=== PATIENT | female | born 1970 | race Caucasian/White ===

== ENCOUNTER 2016-10-20 18:14 | Emergency (ER) | payer MEDICAID ==
--- NOTE | 2016-10-20 18:56 | EDPHY ---
H & P Stated Complaint: fell down 7 stairs today R shouilder & foot pain Time Seen by Provider: 10/20/16 18:47 HPI/ROS: CHIEF COMPLAINT: Right shoulder and right toe pain. HISTORY OF PRESENT ILLNESS: Patient is a 46-year-old female who states that she was walking down the stairs and slipped on ice and fell for down the stairs. She is complaining of pain to her right shoulder and right toe. She also has an abrasion to her right knee. She denies any head neck or back injury. She is on Plavix. She denies any loss of consciousness. No abdominal or thoracic pain. She is able to ambulate. REVIEW OF SYSTEMS: Constitutional: denies: chills, fever, recent illness, recent injury EENTM: denies: blurred vision, double vision, nose congestion Respiratory: denies: cough, shortness of breath Cardiac: denies: chest pain, irregular heart rate, lightheadedness, palpitations Gastrointestinal/Abdominal: denies: abdominal pain, diarrhea, nausea, vomiting, blood streaked stools Genitourinary: denies: dysuria, frequency, hematuria, pain Musculoskeletal: See HPI Skin: denies: lesions, rash, jaundice, bruising Neurological: denies: headache, numbness, paresthesia, tingling, dizziness, weakness Hematologic/Lymphatic: denies: blood clots, easy bleeding, easy bruising Immunologic/allergic: denies: HIV/AIDS, transplant EXAM: GENERAL: Well-appearing, well-nourished and in no acute distress. HEAD: Atraumatic, normocephalic. EYES: Pupils equal round and reactive to light, extraocular movements intact, sclera anicteric, conjunctiva are normal. ENT: TMs normal, nares patent, oropharynx clear without exudates. Moist mucous membranes. NECK: Normal range of motion, supple without lymphadenopathy or JVD. LUNGS: Breath sounds clear to auscultation bilaterally and equal. No wheezes rales or rhonchi. HEART: Regular rate and rhythm without murmurs, rubs or gallops. ABDOMEN: Soft, nontender, normoactive bowel sounds. No guarding, no rebound. No masses appreciated. BACK: No CVA tenderness, no spinal tenderness, step-offs or deformities EXTREMITIES: Patient has pain to right shoulder normal range of motion. No swelling or deformity. Pain to her right great toe MTP joint. No swelling or deformity or bruising. Small abrasion to her right knee. NEUROLOGICAL: Cranial nerves II through XII grossly intact. Normal speech, normal gait. 5/5 strength, normal movement in all extremities, normal sensation PSYCH: Normal mood, normal affect. SKIN: Warm, dry, normal turgor, no visible rashes or lesions. Source: Patient Exam Limitations: No limitations - Personal History LMP (Females 10-55): 22-28 Days Ago Current Tetanus/Diphtheria Vaccine: No Current Tetanus Diphtheria and Acellular Pertussis (TDAP): No - Medical/Surgical History Hx Asthma: No Hx Chronic Respiratory Disease: Yes Hx Diabetes: Yes Hx Cardiac Disease: Yes Hx Renal Disease: No Hx Cirrhosis: No Hx Alcoholism: No Hx HIV/AIDS: No Hx Splenectomy or Spleen Trauma: No Other PMH: emphysema, AMI, CVA, high chol, DMII, HTN - Family History Significant Family History: No pertinent family hx - Social History Smoking Status: Current every day smoker Alcohol Use: Sober Drug Use: None Constitutional: Initial Vital Signs Temperature (C) 37 C 10/20/16 18:16 Heart Rate 78 10/20/16 18:16 Respiratory Rate 14 10/20/16 18:16 Blood Pressure 128/80 H 10/20/16 18:16 O2 Sat (%) 94 10/20/16 18:16 O2 Delivery Mode Room Air Allergies/Adverse Reactions: Morpholine Analogues Allergy (Verified 10/20/16 18:20) Penicillins Allergy (Verified 10/20/16 18:20) tetanus and diphtheria toxoids Allergy (Verified 10/20/16 18:20) Home Medications: Medication Instructions Recorded Aspirin 10/20/16 Metformin HCl 10/20/16 Metoprolol Succinate 10/20/16 Plavix 10/20/16 Medical Decision Making - Diagnostics Imaging Results: Imaging Impressions Foot X-Ray 10/20/16 18:53 Impression: Acute fracture with intra-articular involvement involving the meta- epiphyseal base of the great toe distal phalanx. Shoulder X-Ray 10/20/16 18:53 Impression: There is no acute osseous abnormality identified. Imaging: I viewed and interpreted images myself Procedures: Procedure: Splint placement. A postoperative shoe was applied. After application of the splint I returned and re-examined the patient. The splint was adequately immobilizing the joint and distal to the splint the patient's circulation and sensation was intact. ED Course/Re-evaluation: The patient is here primarily asking for pain medication. We will x-ray her shoulder and toe. She declines x-ray of her knee. The patient was placed in a postop shoe. We discussed pain medication options. We will stick with Tylenol. She is allergic to morphine and tramadol and cannot take ibuprofen because for Plavix. She understands this plan and declines further workup or testing. Differential Diagnosis: Partial list of the Differential diagnosis considered include but were not limited to; contusion, fracture, dislocation and although unlikely based on the history and physical exam, I also considered head injury, neck injury, non accidental trauma. I discussed these differential diagnoses and the plan with the patient as well as the usual and expected course. The patient understands that the diagnosis is provisional and that in medicine we are not always correct and that further workup is often warranted. Usual and customary warnings were given. All of the patient's questions were answered. The patient was instructed to return to the emergency department should the symptoms at all worsen or return, otherwise to followup with the physician as we discussed. Departure - Departure Disposition: Home, Routine, Self-Care Clinical Impression: Toe fracture, right Qualifiers: Encounter type: initial encounter Toe: great toe Fracture type: closed Phalanx : distal Fracture alignment: displaced Qualified Code(s): S92.421A - Displaced fracture of distal phalanx of right great toe, initial encounter for closed fracture Condition: Fair Instructions: Toe Fracture (ED) Referrals: ROSELIA WILKS [Other] - As per Instructions Yolande Lopez [Doctor of Podiatric Medicine] - As per Instructions
[2016-10-20 19:51] VITALS: BP 131/78; PULSE 75; RESP 18; TEMP 98.4; O2SAT 93
== END 2016-10-20 19:50 | disposition home or self-care (01) ==
DX: S92.421A Displaced fracture of distal phalanx of right great toe, initial encounter for closed fracture (principal); E11.9 Type 2 diabetes mellitus without complications; I10 Essential (primary) hypertension; F17.200 Nicotine dependence, unspecified, uncomplicated; Z86.73 Personal history of transient ischemic attack (TIA), and cerebral infarction without residual deficits; Z79.84 Long term (current) use of oral hypoglycemic drugs; Z79.82 Long term (current) use of aspirin; W10.8XXA Fall (on) (from) other stairs and steps, initial encounter
CPT/HCPCS: L3260

== ENCOUNTER 2016-12-24 13:01 | Emergency (ER) | payer MEDICAID ==
[2016-12-24 13:08] VITALS: RESP 16; TEMP 98.2
--- NOTE | 2016-12-24 13:20 | CPEKG ---
Heart Rate: 69 RR Interval: 870 P-R Interval: 172 QRSD Interval: 90 QT Interval: 404 QTC Interval: 433 P [place]: 49 QRS [place]: -87 T Wave [place]: 50 EKG Severity - ABNORMAL ECG - EKG Impression: SINUS RHYTHM EKG Impression: LAD, CONSIDER LEFT ANTERIOR FASCICULAR BLOCK Electronically Signed By: Jag Crowell 24-Dec-2016 13:28:54
[2016-12-24] MEDS ORDERED: ASPIRIN 81 MG CHEWABLE TAB PO ONE (13:22)
[2016-12-24 13:30] LABS: % IMMATURE GRANULYOCYTES 0.6 % (0.0-1.1); ABSOLUTE IMMATURE GRANULOCYTES 0.09 10^3/uL (0.00-0.10); ADD DIFF? NO; ADD MORPH? NO; ADD SCAN? NO; ATYPICAL LYMPHOCYTE FLAG 0 (0-99); FRAGMENT RBC FLAG 0 (0-99); HEMATOCRIT 42.8 % (38.0-47.0); HEMOGLOBIN 13.9 g/dL (12.6-16.3); LEFT SHIFT FLG 0 (0-99); LIPEMIA HEMOLYSIS FLAG 80 (0-99); MEAN CELL HEMOGLOBIN 27.4 pg (27.9-34.1); MEAN CELL HEMOGLOBIN CONCENTR. 32.5 g/dL (32.4-36.7); MEAN CELL VOLUME 84.4 fL (81.5-99.8); MEAN PLATELET VOLUME 10.5 fL (8.7-11.7); PLATELET CLUMPS FLAG 0 (0-99); PLATELET COUNT 362 10^3/uL (150-400); RED BLOOD CELL COUNT 5.07 10^6/uL (4.18-5.33); RED CELL DISTRIBUTION WIDTH 14.9 % (11.5-15.2)
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
[2016-12-24 13:40] LABS: ANION GAP 15 mEq/L (8-16); CALCIUM 9.3 mg/dL (8.5-10.4); CARBON DIOXIDE 22 mEq/l (22-31); CHLORIDE 104 mEq/L (97-110); CREATININE 0.7 mg/dL (0.6-1.0); GLOMERULAR FILTRATION RATE > 60; GLUCOSE 132 mg/dL (70-100); POTASSIUM 4.3 mEq/L (3.5-5.2); SODIUM 141 mEq/L (134-144)
--- NOTE | 2016-12-24 13:46 | CPEKG ---
Heart Rate: 63 RR Interval: 952 P-R Interval: 176 QRSD Interval: 84 QT Interval: 408 QTC Interval: 418 P [place]: 51 QRS [place]: 250 T Wave [place]: 53 EKG Severity - ABNORMAL ECG - EKG Impression: SINUS RHYTHM EKG Impression: LEFT ANTERIOR FASCICULAR BLOCK EKG Impression: CONSIDER RIGHT VENTRICULAR HYPERTROPHY Electronically Signed By: Jag Crowell 24-Dec-2016 15:34:52
[2016-12-24 13:52] LABS: TROPONIN I < 0.012 ng/mL (0-0.034)
[2016-12-24 15:13] VITALS: BP 135/85; PULSE 65; O2SAT 92
== END 2016-12-24 15:12 | disposition home or self-care (01) ==
DX: R07.9 Chest pain, unspecified (principal); E11.9 Type 2 diabetes mellitus without complications; I10 Essential (primary) hypertension; F17.200 Nicotine dependence, unspecified, uncomplicated; I25.10 Atherosclerotic heart disease of native coronary artery without angina pectoris; Z79.82 Long term (current) use of aspirin; Z79.84 Long term (current) use of oral hypoglycemic drugs; Z86.73 Personal history of transient ischemic attack (TIA), and cerebral infarction without residual deficits; Z95.5 Presence of coronary angioplasty implant and graft

== ENCOUNTER 2017-08-11 23:01 | Observation (INO) | payer MEDICAID ==
--- NOTE | 2017-08-11 23:18 | CPEKG ---
Heart Rate: 67 RR Interval: 896 P-R Interval: 168 QRSD Interval: 106 QT Interval: 420 QTC Interval: 444 P [place]: 40 QRS [place]: -14 T Wave [place]: 49 EKG Severity - NORMAL ECG - EKG Impression: SINUS RHYTHM Electronically Signed By: Yasmine Espinoza 12-Aug-2017 07:15:57
[2017-08-11] MEDS ORDERED: NS 500 ML IV ONE (23:21)
[2017-08-11 23:28] LABS: PLATELET COUNT 253 10^3/uL (150-400)
[2017-08-11] MEDS ORDERED: ASPIRIN 81 MG CHEWABLE TAB PO ONE (23:33)
[2017-08-11] MEDS ORDERED: ASPIRIN 81 MG CHEWABLE TAB ONE (23:33)
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
[2017-08-12] MEDS ORDERED: FAMOTIDINE 20 MG TAB PO ONE (00:32)
[2017-08-12] MEDS ORDERED: MBX SOLN 30 ML BOTTLE PO PRN (00:33)
[2017-08-12] MEDS ORDERED: MAG HYDROX/AL HYDROX/SIMETH 30 ML UDCUP ONE (00:36)
[2017-08-12] MEDS ORDERED: MAG HYDROX/AL HYDROX/SIMETH 30 ML UDCUP PO ONE (00:38)
[2017-08-12] MEDS ORDERED: NITROGLYCERIN 0.4 MG BTL SL ONE (00:59)
--- NOTE | 2017-08-12 01:02 | CPEKG ---
Heart Rate: 60 RR Interval: 1000 P-R Interval: 184 QRSD Interval: 96 QT Interval: 448 QTC Interval: 448 P [place]: 65 QRS [place]: 64 T Wave [place]: 49 EKG Severity - BORDERLINE ECG - EKG Impression: SINUS RHYTHM EKG Impression: LOW VOLTAGE WITH RIGHT AXIS DEVIATION Electronically Signed By: Yasmine Espinoza 12-Aug-2017 07:15:50
[2017-08-12] MEDS ORDERED: fentaNYL 100 MCG/2 ML INJ IVP ONE (01:19)
[2017-08-12] MEDS ORDERED: HYDROCODONE/APAP 5/325 TAB PO PRN (01:21)
[2017-08-12] MEDS ORDERED: ACETAMINOPHEN 325 MG TAB PO PRN (01:21)
[2017-08-12] MEDS ORDERED: NITROGLYCERIN 0.4 MG BTL SL PRN (01:26)
[2017-08-12] MEDS ORDERED: IPRATROPIUM/ALBUTEROL 3 ML DEYVIAL IH PRN (04:35)
[2017-08-12] MEDS: HYDROmorphONE/DILAUDID 2 MG/ML INJ IVP PRN ×2 (04:39→08:11)
[2017-08-12] MEDS: ONDANSETRON 4 MG/2 ML VIAL IVP PRN ×2 (05:45→10:18)
[2017-08-12] MEDS ORDERED: FUROSEMIDE 40 MG/4 ML VIAL IVP SCH (08:00)
[2017-08-12] MEDS ORDERED: ENOXAPARIN 40 MG/0.4 ML SYR SC SCH (09:00)
[2017-08-12] MEDS ORDERED: HEPARIN 10,000 UNIT/10 ML MDV (1,000 UNIT/ML) IVP ONE (09:23)
[2017-08-12] MEDS ORDERED: HEPARIN 10,000 UNIT/10 ML MDV (1,000 UNIT/ML) IVP PRN (09:23)
[2017-08-12] MEDS ORDERED: HEPARIN/DEXTROSE 500 ML IV SCH (09:30)
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
[2017-08-12 09:59] LABS: PLATELET COUNT 251 10^3/uL (150-400)
[2017-08-12 10:08] LABS: INR 0.92 (0.83-1.16); PROTIME(PATIENT) 12.6 SEC (12.0-15.0)
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
[2017-08-12] MEDS ORDERED: LIDOCAINE 1% 300 MG/30 ML SDV ONE (10:52)
[2017-08-12] MEDS ORDERED: IOPAMIDOL (ISOVUE-370) 150 ML BTL IV ONE (10:52)
[2017-08-12] MEDS ORDERED: MIDAZOLAM 2 MG/2 ML VIAL ONE ×2 (10:59→11:00)
[2017-08-12] MEDS ORDERED: CLOPIDOGREL BISULFATE 75 MG TAB ONE (11:01)
--- NOTE | 2017-08-12 11:04 | PDPROPOC ---
Sedation Plan of Care Sedation Plan of Care: mental status noted, patient educated of risks, benefits , alternatives, patient can tolerate sedation ASA Classification: ASA 2 Planned drugs: fentanyl, midazolam Mallampati Score: Class 2 Mallampati Reference Image: Patient passed 3-3-2 rule?: Yes
--- NOTE | 2017-08-12 11:04 | PDHPUP ---
History & Physical Update H&P update statement: This history and physical update is based on an assessment of the patient which was completed after admission or registration (within 24 hours), but prior to the surgery/procedure. H&P update: H&P reviewed & patient examined, no change in patient's condition since H&P completed
[2017-08-12] MEDS ORDERED: fentaNYL 100 MCG/2 ML INJ ONE (11:46)
[2017-08-12] MEDS ORDERED: ATROPINE SULFATE 1 MG/10 ML SYR IVP PRN (11:51)
--- NOTE | 2017-08-12 12:19 | CPIP ---
[f rep st] INVASIVE CARDIAC PROCEDURE DATE OF PROCEDURE: 08/12/2017 INDICATION FOR PROCEDURE: Unstable angina. NAME OF PROCEDURE: 1. Nonselective right groin sheathogram. 2. Bilateral selective coronary angiography. 3. Left heart catheterization. 4. Left ventriculogram. HISTORY: Briefly, this is a 47-year-old female with history of PCIs in the past. The patient was ad mitted for unstable anginal like symptoms. Her ECG showed normal sinus rhythm with no acute ST martinez es. She had no troponin elevation, but the patient did complain of ongoing chest discomfort. In vie w of these findings, patient consented for left heart catheterization. DESCRIPTION OF PROCEDURE: After informed consented, the patient was brought to [facility] where the right groin was prepped and draped in sterile fashion. Using lidocaine, a short 6-Fren ch sheath was introduced in the right femoral artery verified angiographically. Through the 6-Indonesian sheath, a JL4 catheter was advanced to the left coronary artery. Images of the left coronary artery revealed short left main. Left circumflex artery had a medium size marginal 1 artery coming off pro ximally which was healthy and free of disease. There was a stent in the mid left circumflex artery w hich is widely patent. Distally, there was tiny marginal arteries which were all patent but again ve ry tiny in caliber. The AV groove circ was healthy and free of disease. There was an LAD which wrap ped around the apex. The LAD gave off small diagonal arteries. The LAD appeared to be healthy and f ree of disease. The LAD was of a small caliber overall with mild plaque disease throughout its cours e. After these images had been obtained, the JL4 catheter was removed. A JR4 catheter was advanced to the right coronary artery. Images of the right coronary artery revealed patent but small ostial a nd proximal RCA. There was a 40% to 50% disease proximally in the RCA going into a stented region wh ich was widely patent. Distally, the RPD and RPDA appeared to be widely patent. On further review, this appeared to be a codominant circulation. After these images were obtained, the JR4 catheter was removed over the 0.035 wire. A pigtail catheter was advanced to the left ventricle. LVEDP 16 mmHg. Left ventriculogram in the KAUR projection showed EF of 60% with no wall motion abnormalities. No p ullback gradient between the LV and the aorta. Pigtail catheter removed over the 0.035 wire. Right groin was closed with manual pressure. Patient tolerated the procedure well without any complication s. IMPRESSION: 1. Patent stents in the mid left circumflex artery with small but intact left anterior descending. 2. Patent stent in the proximal right coronary artery with 40% to 50% disease proximal to this area with no high-grade stenosis. 3. Codominant circulation. 4. Normal ejection fraction. PLAN: The patient's pain is not coming from an acute coronary occlusion/blockage. Would suggest agg ressive medical therapy and ruling out other potential etiologies for her pain, i.e. gastrointestinal /pulmonic. /[id number]/MODL
[2017-08-12] MEDS ORDERED: ALBUTEROL 60 PUFFS/8 GM MDI IH PRN (12:47)
[2017-08-12] MEDS ORDERED: NON-FORMULARY NEW DRUG (Oxycodone Hcl/Acetaminophen [Percocet 10-325 Mg Tablet] 1 EACH) PO PRN (12:47)
--- NOTE | 2017-08-12 12:52 | HOSPPROG ---
Hospitalist Progress Note Assessment/Plan: * Chest pain/nausea * went to collaborative physician for possible unstable angina - but no blockage found * ?GI - try pepcid. LFT's look ok but can consider gallbladder evaluation * extensive cad history * cont meds *dm2 * hold metformin d/t contrast *htn * copd Subjective: complaining of nausea, chest discomfort like previous [place] Objective: Vital Signs Temp Pulse Resp BP Pulse Ox 36.8 C 58 L 16 139/82 H 95 08/12/17 10:29 08/12/17 10:29 08/12/17 10:29 08/12/17 10:29 08/12/17 10:29 Laboratory Results 08/12/17 09:50 08/11/17 08/12/17 08/13/17 04:59 05:59 05:59 Intake Total 350 Output Total 700 Balance -350 PT 12.6 SEC (12.0-15.0) 08/12/17 09:50 INR 0.92 (0.83-1.16) 08/12/17 09:50 - Physical Exam Constitutional: no apparent distress, appears nourished, not in pain Eyes: anicteric sclera, EOMI Ears, Nose, Mouth, Throat: moist mucous membranes, hearing normal Cardiovascular: regular rate and rhythym, no murmur, rub, or gallop, edema (1+) Respiratory: no respiratory distress, no rales or rhonchi, clear to auscultation Gastrointestinal: normoactive bowel sounds, soft, non-tender abdomen, no palpable masses Skin: warm Neurologic: AAOx3 Psychiatric: interacting appropriately, not anxious, not encephalopathic, thought process linear ICD10 Worksheet Patient Problems: Problems Problem Status Onset CAD (coronary artery disease) Acute COPD (chronic obstructive pulmonary disease) Acute Chest pain Acute
[2017-08-12] MEDS ORDERED: NON-FORMULARY NEW DRUG (Isosorbide Mononitrate [Isosorbide Mononitrate Er] 60 MG) PO SCH (13:00)
--- NOTE | 2017-08-12 13:05 | ECHO ---
[email or web address] [address] Main: [phone] Fax: Transthoracic Echocardiogram Name: ADY KHAN MR#: [id number] Study Date: 08/12/2017 Study Time: 12:08 PM Date of : 1970 Age: 47 year(s) Height: 162.6 cm (64 in.) Weight: 114.76 kg (253 lb.) BSA: 2.16 m2 Gender: Female Examination: Echo Indication: Post Cath Image Quality: Contrast: Requested by: Karine Atkins BP: 131 mmHg/89 mmHg Heart Rate: Rhythm: Normal sinus rhythm Indication: Post Cath Procedure Staff [employer] Associate: Cyrus Galdamez RDCS Reading Physician: Phu Ram MD Requesting Provider: Conclusions: Normal size left ventricle. No LV hypertrophy. Normal global systolic LV function. EF is 78 %. No regional wall motion abnormality. Normal diastolic LV function. Normal size right ventricle. The left atrium is normal in size. The right atrium is normal in size. The mitral valve is normal in appearance and function. The aortic valve is normal in appearance and function. The tricuspid valve is normal in appearance and function. The pulmonic valve is normal in appearance and function. No pericardial effusion. Measurements: Chambers Valvular Assessment AV/MV Valvular Assessment TV/PV Normal Normal Normal Name Value Range Name Value Range Name Value Range Ao Naty (MM): 2.6 cm (2.2 cm-3.7 AV Vmax: 1.60 m/s (1 m/s-1.7 PV Vmax: 1.06 m/s (0.6 m/s-0.9 cm) m/s) m/s) IVSd (2D): 0.9 cm (0.6 cm-1.1 AV maxP mmHg ( - ) PV PGmax: 4 mmHg ( - ) cm) LVOT Vmax: 0.99 m/s (0.7 m/s-1.1 LVDd (2D): 5.5 cm (3.9 cm-5.3 m/s) cm) MV E Vmax: 1.40 m/s ( - ) LVDs (2D): 2.9 cm (2.1 cm-4 MV A Vmax: 0.91 m/s ( - ) cm) MV E/A: 1.54 ( - ) LVPWd (2D): 1.1 cm ( - ) LVEF (2D): 78 (>=54 %) Patient: ADY KHAN Study Date: 08/12/2017 Page 1 of 2 12:08 PM Continued Measurements: Chambers Valvular Assessment AV/MV Name Value Name Value LADs Lon.9 cm MV E/E' Septal: 19.40 LA Area: 17.4 cm2 MV E/E' Lateral: 18.40 LA Volume: 62 ml LA Volume Index: 28.7 ml/m2 Findings: Left Ventricle: Normal size left ventricle. No LV hypertrophy. Normal global systolic LV function. EF is 78 %. No regional wall motion abnormality. Normal diastolic LV function. Right Ventricle: Normal size right ventricle. Left Atrium: The left atrium is normal in size. Right Atrium: The right atrium is normal in size. Mitral Valve: The mitral valve is normal in appearance and function. Aortic Valve: The aortic valve is normal in appearance and function. Tricuspid Valve: The tricuspid valve is normal in appearance and function. Pulmonic Valve: The pulmonic valve is normal in appearance and function. Aorta: The aorta is normal. Pericardium: No pericardial effusion. (No Signature Object) Patient: ADY KHAN Study Date: 08/12/2017 Page 2 of 2 12:08 PM [id number]
[2017-08-12] MEDS: OXYCODONE/APAP 5/325 TAB PO PRN ×3 (13:53→21:37)
[2017-08-12] MEDS: METOPROLOL TARTRATE 25 MG TAB PO SCH ×2 (13:53→21:35)
[2017-08-12] MEDS: LISINOPRIL 20 MG TAB PO SCH (13:54)
[2017-08-12] MEDS: oxyCODONE IR 5 MG TAB PO PRN ×3 (13:54→21:36)
[2017-08-12] MEDS: CLOPIDOGREL BISULFATE 75 MG TAB PO SCH (14:00)
[2017-08-12] MEDS: PREGABALIN 100 MG CAP PO SCH ×2 (16:30→21:35)
--- NOTE | 2017-08-12 18:02 | ASMTCMCOM ---
CM Note CM Note Notes: 47yr old female admitted for CP, Lower extremity edema. She has a hx of Morbid obesity, CVA-with cog impairment, cad w/stents, 5 ND's. HTN, HLD, DM-2, COPD-chronic O2, and a hx of smoking. Patient reports that [facility] pays her manager content, Jose Alfredo to be with her. Patient went to the skilled laborer, they suggest that her pain not cardiac but possibly gastrointestinal/pulmonic. Patient c/o weakness may need therapies to eval for possible HC- PT/OT/ST. CM to follow. Date Signed: 08/12/2017 03:17 PM Electronically Signed By:Marina Rice LCSW
[2017-08-12] MEDS ORDERED: ZOLPIDEM TARTRATE 5 MG TAB PO SCH (21:00)
[2017-08-12] MEDS: FAMOTIDINE 20 MG/NACL 50 ML IV SCH (21:40)
[2017-08-13 04:33] LABS: PLATELET COUNT 219 10^3/uL (150-400)
[2017-08-13] MEDS: PREGABALIN 100 MG CAP PO SCH ×2 (08:13→16:51)
[2017-08-13] MEDS: FAMOTIDINE 20 MG/NACL 50 ML IV SCH (08:13)
[2017-08-13] MEDS: METOPROLOL TARTRATE 25 MG TAB PO SCH (08:13)
[2017-08-13] MEDS: LISINOPRIL 20 MG TAB PO SCH (08:14)
[2017-08-13] MEDS: CLOPIDOGREL BISULFATE 75 MG TAB PO SCH (08:14)
[2017-08-13] MEDS: oxyCODONE IR 5 MG TAB PO PRN ×2 (08:15→16:51)
[2017-08-13] MEDS: OXYCODONE/APAP 5/325 TAB PO PRN ×2 (08:15→16:50)
[2017-08-13] MEDS ORDERED: HYDROCHLOROTHIAZIDE 25 MG TAB PO SCH (09:00)
[2017-08-13] MEDS ORDERED: ASPIRIN 81 MG CHEWABLE TAB PO SCH (09:00)
[2017-08-13] MEDS ORDERED: ATORVASTATIN CALCIUM 40 MG TAB PO SCH (09:00)
[2017-08-13] MEDS ORDERED: ISOSORBIDE MONONITRATE 30 MG TAB.SR PO SCH (09:00)
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
--- NOTE | 2017-08-13 11:05 | GDS ---
[f rep st] DISCHARGE SUMMARY DIAGNOSES: 1. Noncardiac chest pain in the setting of coronary artery disease status post angiogram which was n egative. 2. Chronic nausea. 3. Anemia. 4. Diabetes. 5. Hypertension. 6. Dyslipidemia. 7. Right leg numbness, should resolve. 8. History of cerebrovascular accident with chronic left-sided weakness. PROCEDURES DONE: 1. Echocardiogram. Normal LV function. EF of 78%. 2. Interventional cardiac procedure showing no obstructive coronary artery disease. No stents neede d. HOSPITAL COURSE: The patient is a 47-year-old with a complicated past medical history, who comes in with chest pain. She underwent angiogram which revealed no obvious coronary artery disease. Her symptoms persisted with ongoing nausea, which is not a new finding for her. She has previously b een on Protonix, which she felt was not helpful. Post angiogram, she developed some numbness in her right thigh, but her DTRs were intact and her strength was intact. Cardiology felt this may have bee n related to irritation of the nerve and should resolve on its own. She will have an ultrasound prio r to discharge to rule out pseudoaneurysm. She has anemia noted in the hospital. It is unclear if this is chronic or new. She does have a fami ly history of colon cancer and stomach cancer, so I recommend she have a GI followup as an outpatient to do further evaluation, including upper and lower endoscopy for her anemia. She is agreeable to t his. I will let her primary care provider know also. The rest of her medical issues remained stable. Her diabetic medication, metformin, is on hold due t o recent dye load, and she can resume this Sunday night, the . CONDITION ON DISCHARGE: Good. Her heart rate is in the 50s, blood pressure 155/70, respirations 14, she is 98% on 3 L nasal cannula. She is alert and oriented. Heart is regular. Lungs are clear. S lightly diminished. She does have some subjective numbness on her right thigh. However, her sensati on is intact below her knee. She was able to transfer safely. Pulses intact. DISCHARGE MEDICATIONS: Please see discharge medication form. FOLLOWUP INSTRUCTIONS: She should follow up with her primary care doctor, Dr. Fran Reyes, next we ek. She needs to follow up with GI for upper and lower endoscopy for her ongoing anemia. And follow up with Neurology only as needed if her numbness in her right leg persists. Total time spent with the patient on day of discharge and coordination of care is 35 minutes. Copy requested to: Fran Reyes MD /[id number]/MODL
--- NOTE | 2017-08-13 12:28 | PDCARPN ---
Cardiology Progress Note Chief Complaint: nausea/CP Assessment/Plan: Assessment: nausea CP hx of CAD Plan: 08/13/17 12:25 Cath showed patent stents with no new high-grade blockages Pt has c/o right thigh numbness--most likely from lateral cutaneous nerve irritation from cath (patient has had numerous procedures via the right groin and had developed scar tissue in this area)--sensation/pain should improve with time U/S of groin shows intact [employer] flow OK to d/c home from CV perspective Subjective: c/o right thigh numbness Reviewed/Discussed With: multidisciplinary team Time Spent With Patient: 25 min Objective: Vital Signs (8 Hrs) Temp Pulse Resp BP Pulse Ox 08/13/17 08:05 36.5 C 50 L 14 155/70 H 98 Intake/Output (24 Hrs) 08/12/17 08/13/17 08/14/17 05:59 05:59 05:59 Intake Total 1300 450 Output Total 2150 600 Balance -850 -150 Intake: Oral (ml) 950 450 IV Intake (ml) 350 Output: Urine (ml) 1800 600 Toilet 1800 600 Estimated Blood Loss (ml) 0 Emesis (ml) 350 Other: Weight 113.7 kg Intake Quantity Yes Sufficient Number of Voids Toilet 2 Number of Emesis 2 Occurrences Result Diagrams: 08/13/17 03:52 08/13/17 03:52 Cardiac Labs: Cardiac Lab Results (72 Hrs) 08/12/17 08:20 Troponin I < 0.012 - Physical Exam Constitutional: healthy appearing Eyes: PERRL Ears, Nose, Mouth, Throat: moist mucous membranes Cardiovascular: regular rate and rhythm Peripheral Pulses: 1+: femoral (R), femoral (L) Respiratory: clear to auscultate bilat Genitourinary: no suprapubic tenderness Skin: no rashes Musculoskeletal: no muscular tenderness Neurologic: AAOx3 Psychiatric: cooperative ICD10 Worksheet Patient Problems: Problems Problem Status Onset CAD (coronary artery disease) Acute COPD (chronic obstructive pulmonary disease) Acute Chest pain Acute
--- NOTE | 2017-08-13 13:06 | ASMTLACE ---
[facility] Length of stay for Answers: 1 day current admission Acuity / Level of Answers: No Care: Did the patient have an inpatient admission? Comorbidities - select Answers: Cerebrovascular disease all that apply (CVA, TIA, aneurysms, vasc ular dementia) Chronic pulmonary disease Coronary Artery Disease Diabetes (uncontrolled or controlled) Previous myocardial infarction # of Emergency department Answers: 1-2 visits in the last 6 months Social determinants Answers: History of substance abuse (ETOH, street drugs, prescription drugs, etc.) Score: 12 Date Signed: 08/13/2017 01:06 PM Electronically Signed By:Jessica Bolaños RN
--- NOTE | 2017-08-13 13:12 | ASMTCMCOM ---
CM Note CM Note Notes: Chart reviewed. Per hospital medicine patient is ready for dc. She has her as primary customer care agent. No other current needs identified at this time, CM available should needs arise. Date Signed: 08/13/2017 01:11 PM Electronically Signed By:Jessica Bolaños RN
--- NOTE | 2017-08-13 13:57 | PDHOMEO2F ---
Home Oxygen Face to Face Home Orders: I certify that a physician or a nurse practitioner or physician's financial assistant has had a upus-ih-famc encounter with this patient on the date of this order due to the diagnosis listed, which relates to the primary reason the patient requires home oxygen. Alternative treatments have been tried, or considered, and deemed ineffective. It is anticipated that supplemental oxygen will result in improvement with treatment. Home oxygen qualifying diagnosis: copd SpO2 on room air (%): 85% Frequency of home oxygen needed: continuous Home oxygen liters per minute: 3 Home oxygen delivery device: nasal cannula Concentrator: No E-tanks for mobility and back up: Yes If ordering portable O2, is the patient mobile in the home?: Yes I certify that, based on these findings, the home oxygen is medically necessary for this patient for the following length of time. Length of time home oxygen needed: 99 years (Will need ongoing eval for oxygen needs)
[2017-08-13 17:52] VITALS: BP 115/68; PULSE 60; RESP 16; TEMP 98.1; O2SAT 94
== END 2017-08-13 18:13 | disposition home or self-care (01) ==
LOC: F2W 08-12 04:05
PROVIDERS: ADMIT Family Medicine; ATTEND Family Medicine
PROC: 4A023N7 Measurement of Cardiac Sampling and Pressure, Left Heart, Percutaneous Approach (ICD-10-PCS; principal; 2017-08-12 12:10)
PROC: B2151ZZ Fluoroscopy of Left Heart using Low Osmolar Contrast (ICD-10-PCS; principal; 2017-08-12 12:10)
PROC: B2111ZZ Fluoroscopy of Multiple Coronary Arteries using Low Osmolar Contrast (ICD-10-PCS; principal; 2017-08-12 12:10)
DX: R07.89 Other chest pain (principal); R11.0 Nausea; D64.9 Anemia, unspecified; E11.9 Type 2 diabetes mellitus without complications; I10 Essential (primary) hypertension; E78.5 Hyperlipidemia, unspecified; R20.0 Anesthesia of skin; I69.354 Hemiplegia and hemiparesis following cerebral infarction affecting left non-dominant side; Z95.5 Presence of coronary angioplasty implant and graft; J44.9 Chronic obstructive pulmonary disease, unspecified; Z87.891 Personal history of nicotine dependence
CPT/HCPCS: 71046; 93005; 93306; 93458; 93926; 96360; 99285; G0378; 80305; 85520-90; J1170; J1644; J1940; J2250; J2405; J3010; Q9967